=== PATIENT | female | born 1980 | race Caucasian/White ===

== ENCOUNTER 2019-11-12 16:40 | Emergency (ER) | payer SELFPAY ==
[2019-11-12] MEDS ORDERED: PENICILLIN G BENZATHINE 1.2 MILLION UNIT/2 ML DISP.SYRIN IM ONE (19:05)
--- NOTE | 2019-11-12 19:07 | ER Document Report ---
ED General - General Chief Complaint: Sore Throat Stated Complaint: SORETHROAT Time Seen by Provider: 11/12/19 18:54 Mode of Arrival: Ambulatory TRAVEL OUTSIDE OF THE [place] IN LAST 30 DAYS: No - HPI Onset: Last week Onset/Duration: Gradual - over the last week Quality of pain: Achy, Other - raw feeling Severity: Moderate Pain Level: 2 Associated symptoms: Other - horse /raspy voice since this morning Exacerbated by: Other - swallowing Relieved by: Denies Similar symptoms previously: No Recently seen / treated by doctor: No Notes: 39 year old female with no significant PMH (Anixety and Depression are her only medical history) here in the ER for a sore throat for the last week with a sensation of throat swelling and a voice of change (voice seems horse since this morning). The patient has tried over the counter medications and salt water rinses without much improvement. The patient denies known sick contacts or recent travel. - Related Data Allergies/Adverse Reactions: No Known Allergies Allergy (Verified 04/14/15 12:50) Past Medical History - General Information source: Patient - Social History Smoking Status: Never Smoker Frequency of alcohol use: Occasional Drug Abuse: None Family History: Reviewed & Not Pertinent Patient has suicidal ideation: No Patient has homicidal ideation: No Psychiatric Medical History: Reports: Hx Anxiety, Hx Depression Past Surgical History: Reports: Hx Breast Surgery - breast reduction 07/20 - Immunizations Hx Diphtheria, Pertussis, Tetanus Vaccination: Yes Review of Systems - Review of Systems Constitutional: No symptoms reported EENT: Throat pain, Throat swelling, Other - voice change Cardiovascular: No symptoms reported Respiratory: No symptoms reported Gastrointestinal: No symptoms reported Genitourinary: No symptoms reported Female Genitourinary: No symptoms reported Musculoskeletal: No symptoms reported Skin: No symptoms reported Hematologic/Lymphatic: No symptoms reported Neurological/Psychological: No symptoms reported -: Yes All other systems reviewed and negative Physical Exam - Vital signs Vitals: Temp Pulse Resp BP Pulse Ox 98.1 F 99 18 144/95 H 98 11/12/19 16:40 11/12/19 16:40 11/12/19 16:40 11/12/19 16:40 11/12/19 16:40 - Notes Notes: GENERAL: Well-appearing, well-nourished and in no acute distress. HEAD: Atraumatic, normocephalic. EYES: Pupils equal round and reactive to light, extraocular movements intact, sclera anicteric, conjunctiva are normal. ENT: External ears normal, nares patent, posterior oropharynx erythematous, tonsils erythematous but without exudates. Moist mucous membranes. NECK: Normal range of motion, supple without lymphadenopathy or JVD. LUNGS: Breath sounds clear to auscultation bilaterally and equal. No wheezes rales or rhonchi. HEART: Regular rate and rhythm without murmurs, rubs or gallops. ABDOMEN: Soft, nontender, normoactive bowel sounds. No guarding, no rebound. No masses appreciated. EXTREMITIES: Normal range of motion, no pitting or edema. No clubbing or cyanosis. NEUROLOGICAL: No focal deficits. Normal speech, normal gait. PSYCH: Normal mood, normal affect. SKIN: Warm, Dry, normal turgor, no rashes or lesions noted. Course - Re-evaluation Re-evalutation: 11/12/19 19:33 The patient's rapid strep was negative but clinically she seems to have an acute pharyngitis. Patient has an erythematous throat/tonsils, tender lymphadenopathy, a sore throat and voice change. Will empirically treat with IM Penicillin since Throat Culture will likely be positive. - Vital Signs Vital signs: Temp Pulse Resp BP Pulse Ox 98.2 F 87 16 141/89 H 98 11/12/19 19:26 11/12/19 19:26 11/12/19 19:26 11/12/19 19:26 11/12/19 19:26 Discharge - Discharge Clinical Impression: Pharyngitis Qualifiers: Pharyngitis/tonsillitis etiology: unspecified etiology Qualified Code(s): J02.9 - Acute pharyngitis, unspecified Condition: Stable Disposition: HOME, SELF-CARE Instructions: Sore Throat ([facility]), Strep Throat ([facility]) Additional Instructions: You had a negative Rapid Strep Test but your Strep Throat Culture is still pending. You were empirically treated with Penicillin given the duration of symptoms and how your throat looked in the ER. Follow up with your primary care doctor or with another doctor if symptoms persist despite treatment.
[2019-11-12 19:28] VITALS: BP 141/89
== END 2019-11-12 19:40 | disposition home or self-care (01) ==
LOC: ER 16:40
DX: J02.9 Acute pharyngitis, unspecified (principal); R49.9 Unspecified voice and resonance disorder
CPT/HCPCS: 99283; 96372; 87070; 87880; J0561

== ENCOUNTER 2020-01-26 08:54 | Inpatient (IN) | payer MEDICARE ==
[2020-01-26 10:01] LABS: APPEARANCE,URINE SLIGHTLY-CLOUDY; BILIRUBIN,URINE NEGATIVE (NEGATIVE); COLOR,URINE AMBER; GLUCOSE, URINE 50 mg/dL (NEGATIVE); KETONES,URINE TRACE mg/dL (NEGATIVE); PROTEIN,URINE 100 mg/dL (NEGATIVE); URINE SPECIFIC GRAVITY 1.027; UROBILINOGEN,URINE NEGATIVE mg/dL (<2.0)
--- NOTE | 2020-01-26 10:33 | ER Document Report ---
ED General - General Chief Complaint: Flu Symptoms Stated Complaint: FLU LIKE SYMPTOMS Time Seen by Provider: 01/26/20 09:29 Notes: 39-year-old female with past medical history of anxiety, UC, depression and recurrent tonsillitis presenting today with left-sided throat pain, migraine, nausea, vomiting and suprapubic pain. She states that her sore throat began last night. States she had strep throat earlier this year and was given antibiotics. She has been told that she needs to have her tonsils removed but has been unable to due to lack of insurance. States that she has some pain with swallowing. She is also had some nausea and vomiting this morning. Last menstrual period was the 28th of last month. Denies any pain with urination. No fevers, chills, shortness of breath or additional symptoms. TRAVEL OUTSIDE OF THE [place] IN LAST 30 DAYS: No - Related Data Allergies/Adverse Reactions: promethazine [From Phenergan] Allergy (Verified 01/26/20 10:07) sulfamethoxazole [From Bactrim] Allergy (Verified 01/26/20 10:07) trimethoprim [From Bactrim] Allergy (Verified 01/26/20 10:07) Past Medical History - Social History Smoking Status: Never Smoker Frequency of alcohol use: None Drug Abuse: None Family History: Reviewed & Not Pertinent Patient has homicidal ideation: No Neurological Medical History: Reports: Hx Migraine Psychiatric Medical History: Reports: Hx Anxiety, Hx Depression - anxiety Past Surgical History: Reports: Hx Breast Surgery - breast reduction 07/20 - Immunizations Hx Diphtheria, Pertussis, Tetanus Vaccination: Yes Review of Systems - Review of Systems Constitutional: No symptoms reported EENT: See HPI Cardiovascular: No symptoms reported Respiratory: No symptoms reported Gastrointestinal: See HPI Genitourinary: No symptoms reported Female Genitourinary: No symptoms reported Musculoskeletal: No symptoms reported Skin: No symptoms reported Physical Exam - Vital signs Vitals: Temp Pulse Resp BP Pulse Ox 99.8 F 118 H 18 145/106 H 100 01/26/20 09:00 01/26/20 09:00 01/26/20 09:00 01/26/20 09:00 01/26/20 09:00 Interpretation: Hypertensive, Tachycardic. No: Febrile - Notes Notes: Adult General: GENERAL: Alert, interacts well. No acute distress HEAD: Normocephalic, atraumatic EYES: Pupils equal, round and reactive to light. Extraocular movements intact. ENT: Left swollen, erythematous tonsil, white exudates, tenderness on left neck. Oral mucosa moist, tongue midline. Uvula midline. Airway patent. Nares patent, sinuses nontender, ear canals unremarkable, TMs intact. No Trismus. NECK: Full range of motion. Supple. Trachea midline. No lymphadenopathy. LUNGS: Clear to auscultation bilaterally, no wheezes, rales, or rhonchi. No respiratory distress. Nontender chest wall. HEART: Regular rate and rhythm. No murmurs, rubs or gallops. ABDOMEN: Soft, tenderness to suprapubic region. Nondistended. (-) [place] sign. Bowel sounds present in all 4 quadrants. No rebound, guarding or masses. GENITOURINARY: Deferred EXTREMITIES: Moves all 4 extremities spontaneously. No cyanosis. BACK: Moves all extremities with full range of motion. NEUROLOGICAL: Alert and oriented x3. Normal speech. PSYCH: Normal affect, normal mood. SKIN: Warm, dry, normal turgor. No rashes or lesions noted. Course - Re-evaluation Re-evalutation: 01/26/20 12:52 Patient's white count was elevated to 38,000. Her CT of her neck shows that she has a 17.3 x 9.5 mm peritonsillar abscess on the left side. Dr. Duarte is agreeable to draining this. I did discuss patient's vitals with Dr. Duarte He believes patient being discharged on antibiotics at this time is appropriate. 01/26/20 13:09 Dr. Duarte evaluated the patient. He believes this could be more of a tonsillar abscess versus peritonsillar abscess and recommends calling ENT. Dr. Chavez ENT was paged. I discussed the patient with him. He recommends that patient be prescribed Augmentin 875 twice daily x10 days and Decadron 4 mg tablets 2 by mouth for the next 2 days. States that his office will follow up with her for an appointment. Patients repeat vitals show she is tachy at 130. Will start on IV fluids, lactic and iv abxs as have concerns she may be septic vs dehydrated due to her increase in her heart rate. Pending repeat vitals after fluids have been run. 01/26/20 16:20 Lactic is .9. She remains tachycardic, has a source of infection and has an elevated white count. I called Dr. Streeter as have concerns of sepsis. I did reexam the patient. She states she had one episode of vomiting but has been able to keep cold fluids down. States that she feels better and is in decreased pain of her throat. Has not received a call from ENT today in regards to follow up. 01/26/20 16:[address] Streeter who feels that patient should be admitted for fluids and antibiotics as she remains tachycardic and is only able to keep cold fluids down. Patient is agreeable to plan. 01/26/20 18:17 I discussed the plan with the patient who is in agreeance with plan. Patient also notified provider that she has an appointment scheduled tomorrow at 10:40am at ENT. - Vital Signs Vital signs: Temp Pulse Resp BP Pulse Ox 98.0 F 113 H 18 137/100 H 96 01/26/20 16:02 01/26/20 16:02 01/26/20 16:02 01/26/20 16:02 01/26/20 13:20 - Laboratory Result Diagrams: 01/26/20 11:13 01/26/20 11:13 Laboratory results interpreted by me: 01/26/20 01/26/20 01/26/20 09:30 11:13 11:13 WBC 38.2 H* RDW 14.7 H Plt Count 762 H Seg Neuts % (Manual) 84 H Band Neutrophils % 2 L Lymphocytes % (Manual) 5 L Abs Neuts (Manual) 32.9 H Abs Monocytes (Manual) 3.1 H Abs Basophils (Manual) 0.4 H Sodium 136.6 L Potassium 3.3 L Glucose 145 H Total Protein 8.8 H Urine Protein 100 H Urine Glucose (UA) 50 H Urine Ketones TRACE H Discharge - Discharge Clinical Impression: Peritonsillar abscess Condition: Stable Disposition: ADMITTED INPATIENT Admitting Provider: Ferdinand (Hospitalist) Unit Admitted: Telemetry Prescriptions: Amoxicillin/Potassium Clav [Augmentin 875-125 Tablet] 1 tab PO BID 10 Days #20 tablet Dexamethasone [Decadron] 4 mg PO DAILY #4 tablet Ondansetron [Zofran Odt 4 mg Tablet] 1 - 2 tab PO Q4H PRN #15 tab.rapdis PRN Reason: For Nausea/Vomiting
[2020-01-26] MEDS ORDERED: DEXAMETHASONE 4 MG TABLET PO ONE (10:34)
[2020-01-26] MEDS ORDERED: ONDANSETRON 4 MG TAB.RAPDIS PO ONE ×2 (10:34→16:32)
[2020-01-26] MEDS ORDERED: ACETAMINOPHEN 325 MG TABLET PO ONE (10:34)
[2020-01-26 11:45] LABS: HEMATOCRIT 39.3 % (36.0-47.0); MEAN CORPUSCULAR HGB CONC 33.2 g/dL (32.0-36.0); MEAN CORPUSCULAR VOLUME 84 fl (80-97); PLATELET COUNT 762 10^3/uL (150-450); RED BLOOD COUNT 4.66 10^6/uL (3.72-5.28); RED CELL DISTRIBUTION WIDTH 14.7 % (11.5-14.0)
[2020-01-26 11:50] LABS: ALBUMIN 4.6 g/dL (3.5-5.0); ALKALINE PHOSPHATASE 111 U/L (38-126); ANION GAP 11 (5-19); ASPARTATE AMINO TRANSFERASE 25 U/L (14-36); BILIRUBIN,DIRECT 0.2 mg/dL (0.0-0.4); BILIRUBIN,TOTAL 0.9 mg/dL (0.2-1.3); BLOOD UREA NITROGEN 14 mg/dL (7-20); CALCIUM 9.7 mg/dL (8.4-10.2); CARBON DIOXIDE 26 mmol/L (22-30); CHLORIDE 100 mmol/L (98-107); GLUCOSE 145 mg/dL (75-110); POTASSIUM 3.3 mmol/L (3.6-5.0); TOTAL PROTEIN 8.8 g/dL (6.3-8.2)
[2020-01-26 12:21] LABS: WHITE BLOOD COUNT 38.2 10^3/uL (4.0-10.5)
[2020-01-26 12:22] LABS: ABSOLUTE LYMPHOCYTES# (MANUAL) 1.9 10^3/uL (0.5-4.7); ABSOLUTE MONOCYTES # (MANUAL) 3.1 10^3/uL (0.1-1.4); BAND NEUTROPHILS % (MANUAL) 2 % (3-5); BASOPHILS % (MANUAL) 1 % (0-2); EOSINOPHILS % (MANUAL) 0 % (0-6); LYMPHOCYTES % (MANUAL) 5 % (13-45); MONOCYTES % (MANUAL) 8 % (3-13); SEGMENTED NEUTROPHILS % (MAN) 84 % (42-78); TOTAL CELLS COUNTED 100
[2020-01-26 12:23] LABS: ANISOCYTOSIS SLIGHT; PLATELET COMMENT INCREASED
--- NOTE | 2020-01-26 12:42 | RADIOLOGY REPORT (SQ) ---
EXAM DESCRIPTION: CT SOFT TISSUE NECK WITH IMAGES COMPLETED DATE/TIME: 01/26/2020 12:01 pm REASON FOR STUDY: evaluation left peritonsillar abscess COMPARISON: None. TECHNIQUE: Post IV contrasted scanning from skull base through lung apices with review of bone, soft tissue and lung windows. Reconstructed coronal and sagittal MPR images reviewed. All images stored on PACS. All CT scanners at this facility use dose modulation, iterative reconstruction, and/or weight based d osing when appropriate to reduce radiation dose to as low as reasonably achievable (ALARA). [facility]: Dose Right [facility]: CareDose [facility]: Dose Right [facility]: Teradose 4D [facility]: [employer] CONTRAST TYPE AND DOSE: contrast/concentration: Isovue 350.00 mmol/ml; Total Contrast Delivered: 75. 0 ml; Total Saline Delivered: 46.9 ml RENAL FUNCTION: None required. The patient is less than 50 years old. RADIATION DOSE: CT Rad equipment meets quality standard of care and radiation dose reduction techniq ues were employed. CTDIvol: 15.1 mGy. DLP: 416 mGy-cm. . LIMITATIONS: None. FINDINGS: SKULL BASE: Intact. MAJOR SALIVARY GLANDS: No solid or cystic masses. No inflammatory changes. LYMPHADENOPATHY: There is mild cervical adenopathy. Left more than right. The largest node measures 8.7 mm in short axis. MUCOSAL MASSES OR ASYMMETRY: There is what appears to be a peritonsillar abscess on the left measurin g 17.3 x 9.5 mm. LARYNX/CORDS: No masses. VASCULAR STRUCTURES: The major vessels are patent. LUNG APICES: Clear. BONES: Intact. THYROID: Normal size. No masses. PARANASAL SINUSES: Clear. OTHER: No other significant finding. IMPRESSION: There appears to be peritonsillar abscess on the left as described. There is mild cervi flavio adenopathy. TECHNICAL DOCUMENTATION: JOB ID: [id number] Quality ID # [id number]: Final reports with documentation of one or more dose reduction techniques (e.g., Au tomated exposure control, adjustment of the mA and/or kV according to patient size, use of iterative reconstruction technique) 2010 [employer]- All Rights Reserved Reading location - IP/workstation name: [email or web address]
[2020-01-26] MEDS ORDERED: LIDOCAINE 1%/EPINEPHRINE INJ 20 ML VIAL INJ ONE (12:46)
[2020-01-26] MEDS ORDERED: NORMAL SALINE 1000 ML 1,000 ML IV ONE (13:30)
[2020-01-26] MEDS ORDERED: AMPICILLIN SOD/SULBACTAM 3 GM VIAL IV ONE (13:32)
[2020-01-26] MEDS ORDERED: KETOROLAC TROMETHAMINE INJ/PF 30 MG/1 ML SDV IM ONE (13:52)
[2020-01-26] MEDS ORDERED: ACETAMINOPHEN 325 MG TABLET PO PRN (16:56)
[2020-01-26] MEDS ORDERED: RINGERS SOLUTION,LACTATED 1,000 ML IV PRN (16:56)
--- NOTE | 2020-01-26 17:44 | PDOC H&P ---
History of Present Illness History of Present Illness: ARGENTINA ORR is a 39 year old female without any significant past medical history who presents with a onset of left-sided throat pain that began this morning. She said she thinks she may have had a fever at home but she was not sure. She said she is not been able to swallow anything but cold liquids because everything else seems to irritate it. She is not had any trouble breathing. She says that this is happened to her several times before and before she moved here from [place] she was planning on getting her tonsils removed because she has had frequent infections associated with them. Her insurance here kicks in 05 April. In the ER she had a leukocytosis and was noted to be tachycardic. She had a CT of her neck which showed a 1.7 x 1 cm peritonsillar abscess. ENT was contacted and said they would follow-up with her in their office. Given the appearance of the lesion on physical examination and the fact that she was tachycardic, we have decided to keep her for IV antibiotics. Past Medical History Neurological Medical History: Reports: Migraine Psychiatric Medical History: Reports: Depression - anxiety Social History Smoking Status: Never Smoker Family History Family History: Reviewed & Not Pertinent Parental Family History Reviewed: Yes Children Family History Reviewed: Yes Sibling(s) Family History Reviewed.: Yes Medication/Allergy Home Medications: Meclizine HCl [Antivert 25 mg Tablet] 25 mg PO ASDIR PRN #20 tablet 12/05/14 Ondansetron HCl [Zofran 4 mg Tablet] 1 - 2 tab PO Q6 PRN #15 tablet 12/05/14 Acetaminophen with Codeine [Tylenol #3 Tablet] 1 each PO Q6HP PRN #30 tablet 04/14/15 Ibuprofen [Motrin 600 Mg Tablet] 600 mg PO TID #60 tablet 04/14/15 Doxycycline Hyclate 100 mg PO BID #20 capsule 12/29/15 Metronidazole [Flagyl 500 mg Tablet] 500 mg PO Q6H #28 tablet 12/29/15 Amoxicillin/Potassium Clav [Augmentin 875-125 Tablet] 1 tab PO BID 10 Days #20 tablet 01/26/20 Dexamethasone [Decadron] 4 mg PO DAILY #4 tablet 01/26/20 Ondansetron [Zofran Odt 4 mg Tablet] 1 - 2 tab PO Q4H PRN #15 tab.rapdis 07/23/20 Allergies/Adverse Reactions: promethazine [From Phenergan] Allergy (Verified 01/26/20 10:07) sulfamethoxazole [From Bactrim] Allergy (Verified 01/26/20 10:07) trimethoprim [From Bactrim] Allergy (Verified 01/26/20 10:07) Review of Systems All systems: reviewed and no additional remarkable complaints except as stated - all systems were reviewed and were negative except as noted in the HPI Physical Exam Vital Signs: Temp Pulse Resp BP Pulse Ox 98.0 F 113 H 18 137/100 H 96 01/26/20 16:02 01/26/20 16:02 01/26/20 16:02 01/26/20 16:02 01/26/20 13:20 Intake & Output 01/25/20 01/26/20 01/27/20 06:59 06:59 06:59 Intake Total 1000 Balance 1000 Weight 58.967 kg General appearance: PRESENT: no acute distress, cooperative, disheveled Head exam: PRESENT: atraumatic, normocephalic Eye exam: PRESENT: EOMI, PERRLA. ABSENT: conjunctival injection, nystagmus, scleral icterus Ear exam: PRESENT: normal external ear exam Mouth exam: PRESENT: moist, neck supple Throat exam: PRESENT: post pharyngeal erythema, tonsillogmegaly - Left tonsil is angry and swollen and protruding without compromising the airway Neck exam: PRESENT: full ROM, lymphadenopathy, tenderness - Left submandibular area. ABSENT: carotid bruit, JVD, meningismus, thyromegaly Respiratory exam: PRESENT: clear to auscultation roma, symmetrical, unlabored. ABSENT: accessory muscle use, chest wall tenderness, crackles, prolonged expiratory phas, rhonchi, tachypnea, wheezes Cardiovascular exam: PRESENT: +S1, +S2, tachycardia Pulses: PRESENT: normal carotid pulses Vascular exam: PRESENT: normal capillary refill GI/Abdominal exam: PRESENT: normal bowel sounds, soft. ABSENT: distended, guarding, rebound, tenderness Extremities exam: ABSENT: clubbing, pedal edema Musculoskeletal exam: PRESENT: ambulatory, normal inspection. ABSENT: deformity Neurological exam: PRESENT: alert, awake, oriented to person, oriented to place, oriented to time, oriented to situation, CN II-XII grossly intact. ABSENT: motor sensory deficit Psychiatric exam: PRESENT: appropriate affect, normal mood Skin exam: PRESENT: dry, warm Results Laboratory Results: 01/26/20 11:13 01/26/20 11:13 01/26/20 01/26/20 01/26/20 09:30 11:13 11:13 WBC 38.2 H* RBC 4.66 Hgb 13.0 Hct 39.3 MCV 84 MCH 28.0 MCHC 33.2 RDW 14.7 H Plt Count 762 H Seg Neutrophils % Not Reportable Sodium 136.6 L Potassium 3.3 L Chloride 100 Carbon Dioxide 26 Anion Gap 11 BUN 14 Creatinine 0.70 Est GFR ( Amer) > 60 Glucose 145 H Lactic Acid Calcium 9.7 Total Bilirubin 0.9 AST 25 Alkaline Phosphatase 111 Total Protein 8.8 H Albumin 4.6 Urine Color FIONA Urine Appearance SLIGHTLY-CLOUDY Urine pH 5.0 Ur Specific [place] 1.027 Urine Protein 100 H Urine Glucose (UA) 50 H Urine Ketones TRACE H Urine Blood NEGATIVE Urine RBC (Auto) 2 01/26/20 14:11 WBC RBC Hgb Hct MCV MCH MCHC RDW Plt Count Seg Neutrophils % Sodium Potassium Chloride Carbon Dioxide Anion Gap BUN Creatinine Est GFR ( Amer) Glucose Lactic Acid 0.9 Calcium Total Bilirubin AST Alkaline Phosphatase Total Protein Albumin Urine Color Urine Appearance Urine pH Ur Specific [place] Urine Protein Urine Glucose (UA) Urine Ketones Urine Blood Urine RBC (Auto) Impressions: Soft Tissue Neck CT 01/26/20 10:40 IMPRESSION: There appears to be peritonsillar abscess on the left as described. There is mild cervical adenopathy. Assessment and Plan - Diagnosis (1) Peritonsillar abscess Is this a current diagnosis for this admission?: Yes Plan: Follow-up with ENT is being arranged. We will put her in overnight on some IV fluids and some Unasyn. We will put her on a soft diet and encourage p.o. intake as tolerated. If she responsive this pretty well overnight, we can send her home tomorrow on Augmentin with close ENT follow-up. (2) Sepsis Qualifiers: Sepsis type: sepsis due to unspecified organism Sepsis acute organ dysfunction status: without acute organ dysfunction Qualified Code(s): A41.9 - Sepsis, unspecified organism Is this a current diagnosis for this admission?: Yes - Time Time Spent with patient: 35 or more minutes Anticipated discharge: Home Within: within 48 hours - Inpatient Certification Based on my medical assessment, after consideration of the patient's comorbidities, presenting symptoms, or acuity I expect that the services needed warrant INPATIENT care.: Yes Medical Necessity: Need Close Monitoring Due to Risk of Patient Decompensation, Need For IV Fluids, Need For Continuous Telemetry Monitoring, Need for IV Antibiotics, Risk of Complication if Not Cared For in Hospital
[2020-01-26] MEDS ORDERED: AMPICILLIN SODIUM/SULBACTAM NA 3 GM in NORMAL SALINE 100 ML IV SCH (18:00)
[2020-01-26] MEDS ORDERED: ONDANSETRON HCL INJ/PF 4 MG/2 ML SDV IV PRN (21:35)
[2020-01-26] MEDS ORDERED: MORPHINE SULFATE 10 MG/ML INJ IV PRN (21:35)
[2020-01-26] MEDS: AMPICILLIN SODIUM/SULBACTAM NA 3 GM in NORMAL SALINE 100 ML IV SCH (22:23)
[2020-01-27] MEDS: AMPICILLIN SODIUM/SULBACTAM NA 3 GM in NORMAL SALINE 100 ML IV SCH ×2 (04:14→09:02)
[2020-01-27 05:08] LABS: HEMATOCRIT 34.6 % (36.0-47.0); HEMOGLOBIN 11.7 g/dL (12.0-15.5); MEAN CORPUSCULAR HGB CONC 33.7 g/dL (32.0-36.0); MEAN CORPUSCULAR VOLUME 83 fl (80-97); PLATELET COUNT 616 10^3/uL (150-450); RED BLOOD COUNT 4.17 10^6/uL (3.72-5.28); RED CELL DISTRIBUTION WIDTH 14.7 % (11.5-14.0); WHITE BLOOD COUNT 28.7 10^3/uL (4.0-10.5)
[2020-01-27 05:21] LABS: ANION GAP 11 (5-19); BLOOD UREA NITROGEN 16 mg/dL (7-20); CARBON DIOXIDE 22 mmol/L (22-30); CHLORIDE 102 mmol/L (98-107); GLUCOSE 126 mg/dL (75-110); POTASSIUM 3.4 mmol/L (3.6-5.0)
[2020-01-27 08:52] VITALS: BP 133/87
[2020-01-27 13:12] LABS: PATH REVIEW PATHOLOGIST REVIEWED
--- NOTE | 2020-01-27 17:48 | PDOC DISCHARGE SUMMARY ---
Impression - Admit/DC Date/PCP Admission Date/Primary Care Provider: 01/26/20 17:41 Discharge Date: 01/27/20 - Discharge Diagnosis (1) Peritonsillar abscess Is this a current diagnosis for this admission?: Yes (2) Sepsis Is this a current diagnosis for this admission?: Yes - Additional Information Resuscitation Status: Full Code Discharge Diet: As Tolerated Discharge Activity: Activity As Tolerated Referrals: NADYA ALVARADO MD [ACTIVE STAFF] - 02/01/20 10:00 am Prescriptions: Amoxicillin/Potassium Clav [Augmentin 875-125 Tablet] 1 tab PO Q12 #28 tablet Dexamethasone [Decadron] 4 mg PO DAILY #4 tablet Ondansetron [Zofran Odt 4 mg Tablet] 1 - 2 tab PO Q4H PRN #15 tab.rapdis PRN Reason: For Nausea/Vomiting Home Medications: Dexamethasone [Decadron] 4 mg PO DAILY #4 tablet 01/26/20 Ondansetron [Zofran Odt 4 mg Tablet] 1 - 2 tab PO Q4H PRN #15 tab.rapdis 01/26/20 Amoxicillin/Potassium Clav [Augmentin 875-125 Tablet] 1 tab PO Q12 #28 tablet 01/27/20 Balsalazide Disodium [Colazal] 2,250 mg PO TID 01/27/20 Duloxetine HCl [Cymbalta] 60 mg PO DAILY 01/27/20 Suvorexant [Belsomra] 20 mg PO QHS 01/27/20 History of Present Illiness History of Present Illness: ARGENTINA ORR is a 39 year old female without any significant past medical history who presents with a onset of left-sided throat pain that began this morning. She said she thinks she may have had a fever at home but she was not sure. She said she is not been able to swallow anything but cold liquids because everything else seems to irritate it. She is not had any trouble br eathing. She says that this is happened to her several times before and before she moved here from [place] she was planning on getting her tonsils removed because she has had frequent infections associated with them. Her insurance here kicks in 05 April. In the ER she had a leukocytosis and was noted to be tachycardic. She had a CT of her neck which showed a 1.7 x 1 cm peritonsillar abscess. ENT was contacted and said they would follow-up with her in their office. Given the appearance of the lesion on physical examination and the fact that she was tachycardic, we have decided to keep her for IV antibiotics. Hospital Course Hospital Course: She has had some improvement with IV antibiotics. Her white blood cell count is come down she is been afebrile. She is able to take fluids okay and some soft foods. She has follow-up this morning with ENT. She will continue a 2-week course of p.o. Augmentin. We are also giving her a few days of some p.o. Decadron. She was encouraged to come back for reevaluation if she has any worsening of her symptoms. She verbalized understanding. Her labs and examination were reassuring and she was discharged in stable condition. Physical Exam Vital Signs: Temp Pulse Resp BP Pulse Ox 98.4 F 118 H 18 132/83 H 100 01/27/20 07:37 01/27/20 07:37 01/27/20 07:37 01/27/20 07:37 01/27/20 07:37 Intake & Output 01/26/20 01/27/20 01/28/20 06:59 06:59 06:59 Intake Total 1500 1100 Balance 1500 1100 Weight 58 kg General appearance: PRESENT: no acute distress, cooperative, disheveled Throat exam: PRESENT: post pharyngeal erythema, tonsillogmegaly - Left tonsil is angry and swollen and protruding without compromising the airway Neck exam: PRESENT: full ROM, lymphadenopathy, tenderness - Left submandibular area. ABSENT: carotid bruit, JVD, meningismus, thyromegaly Respiratory exam: PRESENT: clear to auscultation roma, symmetrical, unlabored. ABSENT: accessory muscle use, chest wall tenderness, crackles, prolonged expiratory phas, rhonchi, tachypnea, wheezes Cardiovascular exam: PRESENT: +S1, +S2, tachycardia Pulses: PRESENT: normal carotid pulses Vascular exam: PRESENT: normal capillary refill GI/Abdominal exam: PRESENT: normal bowel sounds, soft. ABSENT: distended, guarding, rebound, tenderness Extremities exam: ABSENT: clubbing, pedal edema Musculoskeletal exam: PRESENT: ambulatory, normal inspection. ABSENT: deformity Neurological exam: PRESENT: alert, awake, oriented to person, oriented to place, oriented to time, oriented to situation Psychiatric exam: PRESENT: appropriate affect, normal mood Skin exam: PRESENT: dry, warm Results Laboratory Results: WBC 28.7 10^3/uL (4.0-10.5) H 01/27/20 04:07 RBC 4.17 10^6/uL (3.72-5.28) 01/27/20 04:07 Hgb 11.7 g/dL (12.0-15.5) L 01/27/20 04:07 Hct 34.6 % (36.0-47.0) L 01/27/20 04:07 MCV 83 fl (80-97) 01/27/20 04:07 MCH 28.0 pg (27.0-33.4) 01/27/20 04:07 MCHC 33.7 g/dL (32.0-36.0) 01/27/20 04:07 RDW 14.7 % (11.5-14.0) H 01/27/20 04:07 Plt Count 616 10^3/uL (150-450) H 01/27/20 04:07 Lymph % (Auto) Not Reportable 01/26/20 11:13 [place] % (Auto) Not Reportable 01/26/20 11:13 Eos % (Auto) Not Reportable 01/26/20 11:13 Baso % (Auto) Not Reportable 01/26/20 11:13 Absolute Neuts (auto) Not Reportable 01/26/20 11:13 Absolute Lymphs (auto) Not Reportable 01/26/20 11:13 Absolute Monos (auto) Not Reportable 01/26/20 11:13 Absolute Eos (auto) Not Reportable 01/26/20 11:13 Absolute Basos (auto) Not Reportable 01/26/20 11:13 Total Counted 100 01/26/20 11:13 Seg Neutrophils % Not Reportable 01/26/20 11:13 Seg Neuts % (Manual) 84 % (42-78) H 01/26/20 11:13 Band Neutrophils % 2 % (3-5) L 01/26/20 11:13 Lymphocytes % (Manual) 5 % (13-45) L 01/26/20 11:13 Monocytes % (Manual) 8 % (3-13) 01/26/20 11:13 Eosinophils % (Manual) 0 % (0-6) 01/26/20 11:13 Basophils % (Manual) 1 % (0-2) 01/26/20 11:13 Abs Neuts (Manual) 32.9 10^3/uL (1.7-8.2) H 01/26/20 11:13 Abs Lymphs (Manual) 1.9 10^3/uL (0.5-4.7) 01/26/20 11:13 Abs Monocytes (Manual) 3.1 10^3/uL (0.1-1.4) H 01/26/20 11:13 Absolute Eos (Manual) 0.0 10^3/uL (0.0-0.6) 01/26/20 11:13 Abs Basophils (Manual) 0.4 10^3/uL (0.0-0.2) H 01/26/20 11:13 Platelet Comment INCREASED 01/26/20 11:13 Anisocytosis SLIGHT 01/26/20 11:13 Sodium 134.9 mmol/L (137-145) L 01/27/20 04:07 Potassium 3.4 mmol/L (3.6-5.0) L 01/27/20 04:07 Chloride 102 mmol/L (98-107) 01/27/20 04:07 Carbon Dioxide 22 mmol/L (22-30) 01/27/20 04:07 Anion Gap 11 (5-19) 01/27/20 04:07 BUN 16 mg/dL (7-20) 01/27/20 04:07 Creatinine 0.61 mg/dL (0.52-1.25) 01/27/20 04:07 Est GFR ( Amer) > 60 (>60) 01/27/20 04:07 Est GFR (MDRD) Non-Af > 60 (>60) 01/27/20 04:07 Glucose 126 mg/dL (75-110) H 01/27/20 04:07 Lactic Acid 0.9 mmol/L (0.7-2.1) 01/26/20 14:11 Calcium 9.0 mg/dL (8.4-10.2) 01/27/20 04:07 Total Bilirubin 0.9 mg/dL (0.2-1.3) 01/26/20 11:13 Direct Bilirubin 0.2 mg/dL (0.0-0.4) 01/26/20 11:13 Neonat Total Bilirubin Not Reportable 01/26/20 11:13 Neonat Direct Bilirubin Not Reportable 01/26/20 11:13 Neonat Indirect Bili Not Reportable 01/26/20 11:13 AST 25 U/L (14-36) 01/26/20 11:13 ALT 12 U/L (<35) 01/26/20 11:13 Alkaline Phosphatase 111 U/L (38-126) 01/26/20 11:13 Total Protein 8.8 g/dL (6.3-8.2) H 01/26/20 11:13 Albumin 4.6 g/dL (3.5-5.0) 01/26/20 11:13 Urine Color FIONA 01/26/20 09:30 Urine Appearance SLIGHTLY-CLOUDY 01/26/20 09:30 Urine pH 5.0 (5.0-9.0) 01/26/20 09:30 Ur Specific [place] 1.027 01/26/20 09:30 Urine Protein 100 mg/dL (NEGATIVE) H 01/26/20 09:30 Urine Glucose (UA) 50 mg/dL (NEGATIVE) H 01/26/20 09:30 Urine Ketones TRACE mg/dL (NEGATIVE) H 01/26/20 09:30 Urine Blood NEGATIVE (NEGATIVE) 01/26/20 09:30 Urine Nitrite (Reflex) NEGATIVE (NEGATIVE) 01/26/20 09:30 Urine Bilirubin NEGATIVE (NEGATIVE) 01/26/20 09:30 Urine Urobilinogen NEGATIVE mg/dL (<2.0) 01/26/20 09:30 Leukocyte Esterase Rfl NEGATIVE (NEGATIVE) 01/26/20 09:30 Urine RBC (Auto) 2 /HPF 01/26/20 09:30 Urine WBC (Reflex) 4 /HPF 01/26/20 09:30 Squamous Epi Cells Auto 14 /HPF 01/26/20 09:30 Urine Mucus (Auto) MOD /LPF 01/26/20 09:30 Urine Ascorbic Acid NEGATIVE (NEGATIVE) 01/26/20 09:30 Group A Strep Rapid NEGATIVE (NEGATIVE) 01/26/20 09:30 Slides for Path Review PATHOLOGIST REVIEWED 01/26/20 11:13 Impressions: Soft Tissue Neck CT 01/26/20 10:40 IMPRESSION: There appears to be peritonsillar abscess on the left as described. There is mild cervical adenopathy. Plan Time Spent: Greater than 30 Minutes Stroke Is this a Stroke Patient?: No Acute Heart Failure - Is this a Heart Failure Patient?: No
== END 2020-01-27 10:25 | disposition home or self-care (01) | DRG 872 ==
LOC: ER 08:54 → EH 17:41 → 4S 20:42
PROVIDERS: ADMIT Family Medicine; ATTEND Family Medicine
DX: A41.9 Sepsis, unspecified organism (principal); J36 Peritonsillar abscess; R00.0 Tachycardia, unspecified; G43.909 Migraine, unspecified, not intractable, without status migrainosus; F41.8 Other specified anxiety disorders
CPT/HCPCS: 36415; 70491; 80048; 80053; 81001; 83605; 85025; 85027; 87040; 87070; 87077; 87880; 96361; 96372; 96374; 99284; J0295; J1885; J2270; J2405; J7030; J7050; J7120; J8540; S0119

== ENCOUNTER 2020-02-13 07:04 | Day surgery (SDC) | payer MEDICARE, MEDICAID ==
[2020-02-13] MEDS ORDERED: FENTANYL CITRATE INJ/PF 100 MCG/2 ML AMPUL ONE (09:17)
[2020-02-13] MEDS ORDERED: MIDAZOLAM 2 MG/2 ML INJ ONE (09:17)
[2020-02-13] MEDS ORDERED: ONDANSETRON HCL INJ/PF 4 MG/2 ML SDV ONE ×2 (09:17→12:04)
[2020-02-13] MEDS ORDERED: DEXAMETHASONE SOD PHOS INJ 10 MG/1 ML VIAL ONE (09:17)
[2020-02-13] MEDS ORDERED: PROPOFOL INJ 200 MG/20 ML VIAL IV ONE (09:17)
[2020-02-13] MEDS ORDERED: BUPIVACAINE HCL 0.5%/EPI 1:200000 INJ 1.8 ML CARTRIDGE ONE (10:25)
[2020-02-13] MEDS ORDERED: LIDOCAINE 2% INJ-PF (100 MG/5 ML) SYRINGE ONE (10:26)
--- NOTE | 2020-02-13 12:15 | Operative Report ---
Operative Report-[facility] Operative Report: DATE OF OPERATION: February 13, 2020 PREOPERATIVE DIAGNOSIS: 1. Recurrent left peritonsillar abscess/process 2. Chronic left upper neck and throat pain 3. Concern for a tonsil neoplasm POSTOPERATIVE DIAGNOSIS: 1. Recurrent left peritonsillar abscess/process 2. Chronic left upper neck and throat pain 3. Concern for a tonsil neoplasm PROCEDURE: 1. Bilateral tonsillectomy patient age greater than 12 years old Primary Surgeon of Record: Dr. Kain Godfrey SALES AND MARKETING ASSISTANT: None Anesthesia Staff: NABOR Padilla ANESTHESIA: General Endotracheal Tube Anesthesia DRAINS: None SPONGE COUNT: Verified Needle Count: N/A SPECIMEN/MATERIALS FORWARD TO THE LAB: 1. Left and Right Tonsillar Tissue ESTIMATED BLOOD LOSS: 10 mL IV FLUIDS: 600 mL COMPLICATIONS: None Findings: 1. The tonsils were 2-3+ in size, were cryptic in appearance, or with tonsillar debris present, were friable in nature, and there was increased scar tissue throughout the left peritonsillar aspect. No purulence was encountered. 2. The soft palatal tissues were redundant in nature and the uvula was unremarkable in appearance. INDICATIONS: This is a 39-year-old white female patient who was seen and evaluated in the [place] otolaryngology office. The patient had been referred for and there has been concern for a recurrent left peritonsillar abscess type process. In the ENT office there was also concern for possible tonsil neoplastic process as well. After extensive discussion with the patient the recommendation and plan was to proceed with a bilateral tonsillectomy, and pathology evaluation for work-up and rule out of a tonsil lymphoma process/tonsil cancer all of which the patient voiced an understanding of and agreed with. The procedures and all of the risks and complications were all discussed in detail with the patient. She voiced an understanding of the described surgical plan, were in agreement, and consent was obtained. DESCRIPTION OF OPERATIVE PROCEDURE: The patient was taken to the main operating room and was placed on the operating room table in the supine position. Appropriate monitors were placed. Using mask and IV access general anesthesia was induced. The patient was next transorally intubated without difficulty. The table was then rotated 90 and the patient was positioned and prepped for tonsil surgery. The lips, teeth, tongue, and gums were inspected and noted to be without defect. The patient had a mouth gag inserted. It was opened and the patient was placed into suspension. There was a soft catheter passed through the nose that was used to suspend the soft palate. Findings are as noted above. At this point Marcaine with epinephrine was administered into the peritonsillar tissues and soft palate region. The plasma J-hook device was used to dissect and remove the tonsils from the tonsillar fossae without difficulty. This was also used to provide adequate hemostasis. Normal saline irrigation was performed and was suctioned. Adequate hemostasis was noted. The soft catheter was released and removed from the patients nose. The patient was next released from suspension and the mouth gag was closed. It was opened again and there was again no bleeding noted. It was then removed from the patient's mouth without difficulty. There was no damage to the lips, teeth, tongue, or gums noted. The patient was then returned to the anesthesia staff and was allowed to emerge from general anesthesia. The patient was extubated in the operating room and was transported to the post anesthesia recovery unit in stable condition. There were no complications.
[2020-02-13] MEDS ORDERED: ACETAMINOPHEN 325 MG TABLET ONE (12:59)
[2020-02-13] MEDS ORDERED: ACETAMINOPHEN SUSP 160 MG/5 ML ORAL SYRING ONE (13:02)
[2020-02-13] MEDS ORDERED: SCOPOLAMINE HYDROBROMIDE 1.5 MG PATCH.TD72 TD ONE (14:30)
== END 2020-02-13 13:48 | disposition home or self-care (01) ==
LOC: SC 07:04
PROVIDERS: ATTEND Otolaryngology
DX: J36 Peritonsillar abscess (principal); M54.2 Cervicalgia; I10 Essential (primary) hypertension; Z79.899 Other long term (current) drug therapy
CPT/HCPCS: 42826; 88185 ×15; 88184; 88233; 88262; 88304 ×2; 00170; J2250; J3490; J3010; A9270 ×2; J2001; J2405; J2704; J1100; 170